=== PATIENT | female | born 1970 | race Caucasian/White ===

== ENCOUNTER 2017-01-10 06:31 | Day surgery (SDC) | payer OTHER ==
--- NOTE | 2017-01-06 17:13 | HP ---
PREOPERATIVE HISTORY AND PHYSICAL: DATE OF SURGERY/ADMISSION: 01/10/[address] [facility] DATE OF OFFICE VISIT/ENCOUNTER: 01/04/17 ATTENDING SURGEON: Queenie Malagon MD * (DICTATED BY CINDY YOUSSEF) PROCEDURE: Right wrist arthroscopy, possible scapholunate ligament repair, triangular fibrocartilage complex debridement. CHIEF COMPLAINT: Right wrist pain. HISTORY OF PRESENT ILLNESS: This is a 46-year-old female who has had right wrist ulnar-sided pain for approximately 4 weeks after a fall. She has failed conservative treatment of wearing a wrist brace. She has a history of another injury to this wrist back in 2016. She was treated in the same office for that injury as well. She fell and sustained a partial scapholunate ligament tear that was identified on an MRI and was treated conservatively in a cast. She did well with that. This fall, however, that she had 4 weeks ago has caused pain, did not respond to conservative treatment. She has consented to proceed with surgical intervention at this time in the form of a right wrist arthroscopy. PAST MEDICAL HISTORY: Seasonal allergies. PAST SURGICAL HISTORY: 1. . 2. Tubal ligation. 3. Uterine ablation. CURRENT MEDICATIONS: Alavert as needed. ALLERGIES: No known drug allergies. FAMILY MEDICAL HISTORY: Diabetes and hypertension. SOCIAL HISTORY: The patient is employed as a construction helper. She denies tobacco use and recreational drug use. She drinks alcohol on rare occasion. REVIEW OF SYSTEMS: General: Negative for fevers, chills, or night sweats. No known anesthesia problems. HEENT: Negative for headache, lightheadedness, or syncopal episodes. Integumentary: Negative for abrasions, lesions, or open wounds. Cardiothoracic: Negative for hypertension, chest pain, palpitations, or edema. Pulmonary: Negative for shortness of breath with exertion, chronic cough, COPD. GI: Negative for nausea, vomiting, diarrhea, constipation, or GERD. : Negative for nocturia, urinary frequency, urgency, history of UTIs, or kidney problems. Musculoskeletal: Positive for current complaint. Negative for chronic or intermittent back pain or history of fractures. Neurological: Negative for paresthesias, numbness, history of seizure, stroke, or epilepsy. Endocrine: Negative for diabetes or thyroid issues. Hematologic: Negative for easy bruising, anemia, excessive bleeding, or history of DVT. Infectious Disease: Negative for history of MRSA, hepatitis C, or HIV. PHYSICAL EXAMINATION GENERAL: Well-developed, well-nourished 46-year-old female in no acute distress. VITAL SIGNS: Height 5 feet 1 inch, weight 130 pounds, blood pressure 110/68, pulse rate 72. HEENT: Normocephalic, atraumatic. Pupils are equal, round, and reactive to light and accommodation. Extraocular movements are intact. Throat is clear. NECK: Supple. No palpable lymph nodes. PULMONARY: Lungs are clear to auscultation bilaterally. No wheezes, rales, or rhonchi. CARDIOVASCULAR: Regular rate and rhythm. S1, S2. No murmurs, rubs, or gallops. No edema. ABDOMEN: Positive bowel sounds, soft, nontender. NEUROLOGICAL: Alert and oriented x3. Cranial nerves II through XII are intact. Sensation is intact to light touch. MUSCULOSKELETAL: On exam of the right wrist, there is no visible swelling. She has essentially full range of motion in flexion, extension, pronation, and supination but has pain at full extension and pain with ulnar deviation. She has tenderness to palpation around the distal radial ulnar joint near the TFCC, mild radial carpal tunnel tenderness. Neurovascular function is intact. IMAGING STUDIES: X-rays from November 2016 showed mild diastasis at the scapholunate interval. There is a minimal ulnar plus variance. MRI of October 2015 shows a partial scapholunate ligament tear and suggestion of degeneration and thinning of the TFCC without discrete tear. IMPRESSION: Right wrist possible triangular fibrocartilage complex tear, possible scapholunate ligament tear. PLAN: The patient is scheduled to undergo a right wrist arthroscopy, possible scapholunate ligament repair, triangular fibrocartilage complex debridement with Dr. Malagon on 01/10/17. She will return to the office 10 to 14 days postop for followup and suture removal. A prescription for Cadogan was e-scribed to the patient's pharmacy for postoperative pain management. CINDY YOUSSEF [id number]/[facility] #: [id number] [address] [facility]PITAL[facility]all[facility]
[~2017-01-10 06:31] MED LIST: Buffered Lidocaine 0.9% SYRIN* 5 ML/SYR SYRINGE INTRADERM ONE
[2017-01-10] MEDS ORDERED: ceFAZolin 2 GM PREMIX (*) 50 ML IVPB ONE (06:43)
[2017-01-10] MEDS ORDERED: fentaNYL* 50 MCG/ML 2 ML VIAL (100 MCG VIAL) ONE ×2 (07:20→08:13)
[2017-01-10] MEDS ORDERED: Midazolam* 1 MG/ML 2 ML VIAL (2 MG) ONE (07:20)
[2017-01-10] MEDS ORDERED: Lidocaine 1% INJ* 10 MG/ML 30 ML SDV ONE (07:27)
[2017-01-10] MEDS ORDERED: Bupivacaine 0.5% SDV PF* 30 ML VIAL ONE (07:28)
[2017-01-10] MEDS ORDERED: ROPIVACAINE 5 MG/ML 30 ML BTL (0.5%) ONE (07:36)
[2017-01-10] MEDS ORDERED: Mepivacaine 2% MPF (20 MG/ML)* 20 ML MPF ONE (07:36)
[2017-01-10] MEDS ORDERED: Famotidine IV* 10 MG/ML 2 ML (20 mg) ONE (07:36)
[2017-01-10] MEDS ORDERED: Propofol* 10 MG/ML 20 ML BTL IV PUSH ONE (08:12)
[2017-01-10] MEDS ORDERED: Lidocaine 2% PF * 5 ML VIAL ONE (08:12)
[2017-01-10] MEDS ORDERED: Ketorolac INJ* 30 MG/ML 1 ML VIAL ONE (08:12)
[2017-01-10] MEDS ORDERED: Dexamethasone IV* 4 MG/ML 1 ML (4 MG) ONE (08:12)
[2017-01-10] MEDS ORDERED: HYDROcodone/ACETAMIN 5-325 MG* 1 TAB PO PRN (08:41)
[2017-01-10] MEDS ORDERED: fentaNYL* 50 MCG/ML 2 ML VIAL (100 MCG VIAL) IV PRN (08:41)
[2017-01-10] MEDS ORDERED: Ondansetron INJ* 2 MG/ML VIAL IV PRN (08:41)
[2017-01-10] MEDS ORDERED: DiMENhydriNATE IV* 50 MG/ML VIAL IV PUSH PRN (08:41)
[2017-01-10] MEDS ORDERED: Acetaminophen TAB* 325 MG PO PRN (08:41)
--- NOTE | 2017-01-10 13:26 | OP ---
DATE OF OPERATION: 01/10/17 [facility] DATE OF : 68 SURGEON: Queenie Malagon MD SALES PROGRAM COORDINATOR: CINDY Hudson ANESTHESIOLOGIST: Dr. Tineo ANESTHESIA: Supraclavicular block. PRE-OP DIAGNOSES: TFCC tear and possible scapholunate ligament tear of the right wrist. POST-OP DIAGNOSIS: TFCC tear and possible scapholunate ligament tear of the right wrist. OPERATIVE PROCEDURE: Right wrist arthroscopy and debridement of the TFCC. ESTIMATED BLOOD LOSS: Zero. TOURNIQUET TIME: About 30 minutes. INDICATION FOR PROCEDURE: Amber is a 46-year-old female who has had two right wrist injuries. She has persistent wrist pain. X-ray shows a slight widening at the scapholunate junction but the pain is in the ulnar aspect of the wrist. She presents for wrist arthroscopy, possible scapholunate ligament repair, and TFCC debridement. DESCRIPTION OF PROCEDURE: The patient was brought to the operating room, was given a supraclavicular block anesthetic and was placed in the supine position in the operating table with the tourniquet around her right upper arm. The skin of her right upper extremity was prepped and draped in the usual sterile fashion. The upper extremity was exsanguinated and tourniquet elevated to 250 mmHg. The radiocarpal joint was filled with 10 cc of Marcaine 0.5% plain and then a stab incision was made just ulnar and distal to Arlene's tubercle. The arthroscopy cannula was placed in the radiocarpal joint and diagnostic arthroscopy was performed. The scapholunate ligament was intact. This articular surfaces of the scaphoid, lunate, and radius were in excellent condition. The lunotriquetral ligament was intact. There was a small tear of the central portion of the TFCC with some mild surrounding synovitis. A second portal was created in the 4/5 interval and a 2.0 Gator shaver was placed in the joint. The synovitis and the TFCC tear were debrided back to a stable base. The ulnar head was easily visualized through the tear. Next, a third portal was created just distal to the first and the arthroscope and cannula were placed in the mid carpal joint. Again, we were able to see that the scapholunate junction was intact and I was not able to pass the scope at all between the scaphoid and the lunate, not between the lunate and the triquetrum. The articular surfaces of the capitate, scaphoid, lunate, and triquetrum were in excellent condition. The arthroscopy instruments were removed. The wounds were closed in interrupted fashion with 4-0 nylon suture and the wounds were dressed with Xeroform, 4x4, Webril, and an Juan C wrap. The patient tolerated the procedure well and was brought to the recovery room in good condition. Of note, 10 pounds of traction was placed across the wrist joint with the finger trap traction device. [id number]/[facility] #: [id number] RICHARD
[2017-01-10 13:29] VITALS: BP 110/64
== END 2017-01-10 11:09 | disposition home or self-care (01) ==
LOC: OREAST 06:31
PROVIDERS: ATTEND Orthopaedic Surgery
DX: S63.591A Other specified sprain of right wrist, initial encounter (principal); W19.XXXA Unspecified fall, initial encounter; Y92.9 Unspecified place or not applicable
CPT/HCPCS: J0670; J0690; J1100; J1885; J2001; J2250; J2704; J2795; J3010

== ENCOUNTER 2017-08-04 08:58 | Emergency (ER) | payer OTHER ==
--- OUTSIDE RECORDS SUMMARY | 2017-08-04 09:07 | XMS REPORT ---
:1970 External Reference #:[id number] Author Organization [employer] Address [address] [place] [address] Phone [phone] Care Team Providers Name Role Phone Krishna Schilling M.D. Primary Care Physician Unavailable Payers Type Date Identification Numbers Payment Provider Subscriber Commercial Policy Number: [id number] [employer] Ppo/Pos/Epo/Nap Amber Coronado PayID: [id number] [address] [place] [address] Problems Date Description Provider Status Onset: 06/17/2015 Nuclear senile cataract Shelia Lees O.D. Active Onset: 06/17/2015 Hypermetropia Shelia Lees O.D. Active Onset: 06/17/2015 Presbyopia Shelia Lees O.D. 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 ETOH Use Occasionally consumes alcohol Smoking Patient has never smoked Recreational Drug Use Denies Drug Use Daily Caffeine Consumes on average 2 cups of regular coffee per day Allergies, Adverse Reactions, Alerts Date Description Reaction Status Severity Comments 06/09/2015 NKDA active Medications Medication Date Status Form Strength Qnty SIG Indications Ordering Provider No Active 06/17/2015 Active Unknown Medications Results Description No Information Procedures Date CPT Code Description Status 07/06/2017 24065 Determination Of Refractive State Completed 07/06/2017 46637 Est Patient Comprehensive Exam Completed 06/17/2015 22149 Determination Of Refractive State Completed 06/17/2015 74465 New Patient Comprehensive Exam Completed 02/03/2009 71680 Determination Of Refractive State Completed 02/03/2009 35076 Est Patient Comprehensive Exam Completed 07/28/2006 05305 Determination Of Refractive State Completed 07/28/2006 12604 New Patient Comprehensive Exam Completed Plan of Care 07/06/2017 - Paola Myles O.D.H25.13 Age-related nuclear cataract, bilateralComments:Smoking can increase the risk of developing or worsening any eye related disease, as well as affect your overall health. If you are a smoker , we strongly recommend that you quit.If you are not a smoker, we strongly recommend that you do not start. You have nuclear sclerosis, which is hardening of your natural lens. This is normal as a person ages.H52.03 Hypermetropia, bilateralComments:You have Hyperopia, or far sightedness, I have given you a prescription for glasses and contact lenstrials.Follow up:2 week CL jqimoC51.4 PresbyopiaComments:You have presbyopia. This is when the lens in your eye loses the ability to change focus, and happens as we age. A pair of reading glasses will help you see up close.
--- OUTSIDE RECORDS SUMMARY | 2017-08-04 09:07 | XMS REPORT ---
:1970 External Reference #:[id number] Author Organization [employer] Address [address] [place] [address] Phone [phone] Care Team Providers Name Role Phone Krishna Schilling M.D. Primary Care Physician Unavailable Payers Type Date Identification Numbers Payment Provider Subscriber Commercial Policy Number: [id number] [employer] Ppo/Pos/Epo/Nap Amber Coronado PayID: [id number] [address] [place] [address] Problems Date Description Provider Status Onset: 06/17/2015 Nuclear senile cataract Shelia Lees O.D. Active Onset: 06/17/2015 Hypermetropia Shelia Lees O.D. Active Onset: 06/17/2015 Presbyopia Shelia Lees O.D. 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 This is when the lens in your eye loses the ability to change focus, and happens as we age. A pair of reading glasses will help you see up close.
[2017-08-04 09:21] VITALS: BP 124/80
--- NOTE | 2017-08-04 10:11 | UC ---
FLU HPI - HPI Summary HPI Summary: Patient here concerned about the flu. Her son was diagnosed with flu B and she has been taking care of him. Yesterday she developed a scratchy throat, cough, headache and fatigue. She denies any fever or body aches. - History of Current Complaint Chief Complaint: UCGeneralIllness Stated Complaint: FLU SYMPTOMS Time Seen by Provider: 08/04/17 09:47 Hx Obtained From: Patient Hx Last Menstrual Period: no had ablation done years ago - states Onset/Duration: Gradual Onset, Lasting Days - 1 DAY, Still Present Severity Currently: Mild Severity Initially: Mild Pain Intensity: 0 Pain Scale Used: 0-10 Numeric Associated Signs & Symptoms: Positive: Cough, Sore Throat, Nasal Congestion, Headache. Negative: Fever, Myalgia - Allergy/Home Medications Allergies/Adverse Reactions: Allergies Allergy/AdvReac Type Severity Reaction Status Date / Time SEASONAL Allergy Congestion Uncoded 08/04/17 09:14 PMH/Surg Hx/FS Hx/Imm Hx Previously Healthy: Yes - Surgical History Surgical History: Yes Surgery Procedure, Year, and Place: c section/tubal 2000. ablation 11/01/2011. R wrist surgery 2016 - Family History Known Family History: Positive: Hypertension - Social History Alcohol Use: Occasionally Alcohol Amount: 1-2 drinks a month Substance Use Type: None Smoking Status (MU): Never Smoked Tobacco Review of Systems Constitutional: Fatigue ENT: Sore Throat, Nasal Discharge Respiratory: Cough Cardiovascular: Negative Gastrointestinal: Negative Neurological: Headache All Other Systems Reviewed And Are Negative: Yes Physical Exam Triage Information Reviewed: Yes Appearance: Well-Appearing, No Pain Distress, Well-Nourished Vital Signs: Initial Vital Signs Temp 98.8 F 08/04/17 09:15 Pulse 78 08/04/17 09:15 Resp 16 08/04/17 09:15 BP 124/80 08/04/17 09:15 Pulse Ox 99 08/04/17 09:15 Vital Signs Reviewed: Yes Eyes: Positive: Conjunctiva Clear ENT: Positive: Hearing grossly normal, Pharynx normal, TMs normal Neck: Positive: Supple, Nontender, No Lymphadenopathy Respiratory Exam: Normal Cardiovascular Exam: Normal Abdomen Description: Positive: Soft Musculoskeletal: Positive: No Edema Neurological: Positive: Alert Psychological: Positive: Age Appropriate Behavior Skin: Negative: rashes Flu Course/Dx - Differential Dx/Diagnosis Provider Diagnoses: INFLUENZA B Discharge - Sign-Out/Discharge Documenting (check all that apply): Discharge - Discharge Plan Condition: Stable Disposition: HOME Prescriptions: Oseltamivir CAP* [Tamiflu CAP*] 75 mg PO BID #10 cap Patient Education Materials: Influenza (ED) Forms: *Work Release Referrals: Krishna Schilling MD [Primary Care Provider] - If Needed Additional Instructions: SWAB POSITIVE FOR INFLUENZA B. TAMIFLU TWICE DAILY FOR 5 DAYS. OTC MEDS NEEDED FOR FEVER, BODY ACHES. STAY WELL HYDRATED AND RESTED. SEEK FOLLOW-UP IF YOU ARE NOT IMPROVING EXPECTED. - Billing Disposition and Condition Condition: STABLE Disposition: HOME
== END 2017-08-04 10:15 | disposition home or self-care (01) ==
LOC: UCEAST 08:58
DX: J10.1 Influenza due to other identified influenza virus with other respiratory manifestations (principal)
CPT/HCPCS: 87502; 99212; G0463